=== PATIENT | male | born 1945 | race African-American/Black ===

== ENCOUNTER 2022-09-28 11:21 | Emergency (ER) | payer MEDICARE, OTHER ==
[~2022-09-28] VITALS: Ht 193 cm; Wt 63.6 kg
[2022-09-28 11:53] LABS: Basophils # (auto) 0 10 ^3/uL (0-0.2); Basophils % (auto) 0.6 % (0.0-2.0); Eosinophils # (auto) 0 10 ^3/uL (0-0.8); Eosinophils % (auto) 0.6 % (0.0-7.0); Hematocrit 32.8 % (41.0-53.0); Hemoglobin 10.9 g/dL (13.5-17.5); Lymphocytes # (auto) 1.5 10 ^3/uL (0.4-5.4); Lymphocytes % (auto) 22.5 % (10.0-50.0); Mean Corpuscular Hemoglobin 30.1 pg (28.0-32.0); Mean Corpuscular Hgb Conc. 33.3 g/dL (32.0-36.0); Mean Corpuscular Volume 90.3 fL (80.0-100.0); Monocytes # (auto) 0.4 10 ^3/uL (0-1.3); Monocytes % (auto) 5.7 % (0.0-12.0); Neutrophils # (auto) 4.7 10 ^3/uL (1.6-8.6); Neutrophils % (auto) 70.6 % (37.0-80.0); Nucleated Red Blood Cells % 0.1 %; Red Blood Cells 3.63 10^6/uL (4.5-5.90); Red Cell Distribution Width 16.2 % (11.8-14.3); White Blood Cell 6.7 10^3/uL (4.4-10.8)
[2022-09-28 12:15] LABS: Albumin 2.5 g/dL (3.4-5.0); Calcium 8.2 mg/dL (8.5-10.1); Potassium 3.7 mmol/L (3.5-5.1)
[2022-09-28 12:17] LABS: BUN/Creatinine Ratio 12.9; Bilirubin, Total 0.4 mg/dL (0.2-1.0); Total Protein 6.3 g/dL (6.4-8.2)
[2022-09-28 12:31] LABS: Lactic Acid w/Reflex 2.5 mmol/L (0.4-2.0)
[2022-09-28] MEDS ORDERED: hydrALAZINE HCL 20 MG/ML VL IV ONE (14:15)
[2022-09-28] MEDS ORDERED: ESMOLOL HCL-NS 10MG/ML 250 ML IV SCH (15:00)
[2022-09-28] MEDS ORDERED: ESMOLOL HCL (10MG/ML) 10 ML VIAL IV ONE (15:00)
[2022-09-28 15:18] LABS: INR 1.03 (0.9-1.15); Partial Thromboplastin Time 26.3 sec (24.6-33.4)
[2022-09-28 16:35] VITALS: BP 128/91
== END 2022-09-28 14:21 | disposition short-term general hospital (02) ==
LOC: ER 11:21
DX: I71.8 Aortic aneurysm of unspecified site, ruptured (principal); F17.210 Nicotine dependence, cigarettes, uncomplicated; R07.89 Other chest pain; R10.9 Unspecified abdominal pain; Z20.822 Contact with and (suspected) exposure to COVID-19
CPT/HCPCS: 36415; 36430; 71045; 74176; 80053; 83605; 83735; 83880; 84484; 85025; 85379; 85610; 85730; 86850; 86900; 86901; 86920; 87040; 87426; 93005; 96365; 96375; 96376; 99285; J0360; P9016

== ENCOUNTER 2023-01-07 03:49 | Inpatient (IN) | payer MEDICARE, MEDICAID ==
[~2023-01-07] VITALS: Ht 188 cm; Wt 61.3 kg
[2023-01-07] MEDS ORDERED: SODIUM CHLORIDE 0.9% 500 ML IV ONE (04:00)
[2023-01-07 04:47] LABS: Basophils # (auto) 0 10 ^3/uL (0-0.2); Basophils % (auto) 0.5 % (0.0-2.0); Eosinophils # (auto) 0 10 ^3/uL (0-0.8); Eosinophils % (auto) 0.4 % (0.0-7.0); Hematocrit 41.9 % (41.0-53.0); Lymphocytes # (auto) 1.2 10 ^3/uL (0.4-5.4); Lymphocytes % (auto) 19.4 % (10.0-50.0); Mean Corpuscular Hemoglobin 31.1 pg (28.0-32.0); Mean Corpuscular Hgb Conc. 33.4 g/dL (32.0-36.0); Mean Corpuscular Volume 93.3 fL (80.0-100.0); Monocytes # (auto) 0.3 10 ^3/uL (0-1.3); Monocytes % (auto) 5.6 % (0.0-12.0); Neutrophils # (auto) 4.5 10 ^3/uL (1.6-8.6); Neutrophils % (auto) 74.1 % (37.0-80.0); Nucleated Red Blood Cells % 0.2 %; Red Cell Distribution Width 16.1 % (11.8-14.3)
[2023-01-07 04:49] LABS: INR 1.08 (0.9-1.15); Partial Thromboplastin Time 30.5 sec (24.6-33.4)
[2023-01-07 04:53] LABS: Albumin 3.2 g/dL (3.4-5.0); Calcium 8.9 mg/dL (8.5-10.1); Potassium 3.6 mmol/L (3.5-5.1)
[2023-01-07 04:57] LABS: BUN/Creatinine Ratio 10.6 (10.0-20.0); Bilirubin, Total 0.4 mg/dL (0.2-1.0); Total Protein 8.5 g/dL (6.4-8.2)
[2023-01-07] MEDS ORDERED: ACETAMINOPHEN 325 MG TAB PO PRN (09:00)
[2023-01-07] MEDS ORDERED: ALBUTEROL SULF 2.5 MG/0.5ML(0.5%) NEB SOLN NEB PRN (09:00)
[2023-01-07] MEDS: ALBUTEROL SULF 2.5 MG/0.5ML(0.5%) NEB SOLN NEB SCH ×2 (10:10→18:43)
[2023-01-07] MEDS: IPRATROPIUM BROM 0.5 MG/2.5ML INH SOL NEB SCH ×2 (10:10→18:43)
[2023-01-07 10:21] VITALS: BP 146/93
[2023-01-07] MEDS: ENOXAPARIN SOD 40 MG/0.4 ML SYRINGE SC SCH (10:53)
[2023-01-07] MEDS: SODIUM CHLORIDE 0.9% 1,000 ML IV SCH (10:53)
[2023-01-07 20:50] VITALS: BP 134/75
[2023-01-07 22:00] VITALS: BP 134/75
[2023-01-08] MEDS: SODIUM CHLORIDE 0.9% 1,000 ML IV SCH ×2 (01:40→11:55)
[2023-01-08 05:00] VITALS: BP 124/79
[2023-01-08 06:02] LABS: Basophils # (auto) 0 10 ^3/uL (0-0.2); Basophils % (auto) 0.7 % (0.0-2.0); Eosinophils # (auto) 0.1 10 ^3/uL (0-0.8); Eosinophils % (auto) 1.3 % (0.0-7.0); Hematocrit 29.6 % (41.0-53.0); Hemoglobin 9.9 g/dL (13.5-17.5); Lymphocytes # (auto) 1.4 10 ^3/uL (0.4-5.4); Lymphocytes % (auto) 33.1 % (10.0-50.0); Mean Corpuscular Hemoglobin 30.6 pg (28.0-32.0); Mean Corpuscular Hgb Conc. 33.3 g/dL (32.0-36.0); Mean Corpuscular Volume 91.7 fL (80.0-100.0); Monocytes # (auto) 0.4 10 ^3/uL (0-1.3); Monocytes % (auto) 9.3 % (0.0-12.0); Neutrophils # (auto) 2.3 10 ^3/uL (1.6-8.6); Neutrophils % (auto) 55.6 % (37.0-80.0); Nucleated Red Blood Cells % 0.1 %; Red Blood Cells 3.23 10^6/uL (4.5-5.90); Red Cell Distribution Width 15.9 % (11.8-14.3); White Blood Cell 4.2 10^3/uL (4.4-10.8)
[2023-01-08 06:15] LABS: Albumin 2.4 g/dL (3.4-5.0); Calcium 8.2 mg/dL (8.5-10.1); Potassium 3.4 mmol/L (3.5-5.1)
[2023-01-08 06:20] LABS: BUN/Creatinine Ratio 17.2 (10.0-20.0); Bilirubin, Total 0.2 mg/dL (0.2-1.0); Total Protein 5.9 g/dL (6.4-8.2)
[2023-01-08] MEDS: IPRATROPIUM BROM 0.5 MG/2.5ML INH SOL NEB SCH ×3 (06:51→12:00)
[2023-01-08] MEDS: ALBUTEROL SULF 2.5 MG/0.5ML(0.5%) NEB SOLN NEB SCH ×3 (06:51→12:00)
[2023-01-08 09:00] VITALS: BP 116/71
[2023-01-08] MEDS: ENOXAPARIN SOD 40 MG/0.4 ML SYRINGE SC SCH (09:14)
[2023-01-08 13:00] VITALS: BP 128/71
[2023-01-08] MEDS ORDERED: BUDE1AER4 IN (15:25)
[2023-01-08 16:50] VITALS: BP 128/71
[2023-01-08 17:20] VITALS: BP 142/76
== END 2023-01-08 18:30 | disposition home or self-care (01) | DRG 133 ==
LOC: ER 03:49 → OVERFLOW 09:02 → EAST 20:06
PROVIDERS: ADMIT Nurse Practitioner Family; ATTEND Nurse Practitioner Acute Care
DX: J96.01 Acute respiratory failure with hypoxia (principal); R64 Cachexia; J44.9 Chronic obstructive pulmonary disease, unspecified; F17.200 Nicotine dependence, unspecified, uncomplicated; F41.9 Anxiety disorder, unspecified; Z79.51 Long term (current) use of inhaled steroids; Z86.79 Personal history of other diseases of the circulatory system; Z68.1 Body mass index [BMI] 19.9 or less, adult
CPT/HCPCS: 36415; 71045; 71260; 74177; 80053; 83880; 84484; 85025; 85610; 85730; 93005; 94640; 96360; 96372; 97110; 97116; 97163; G0378

== ENCOUNTER 2023-02-04 23:19 | Inpatient (IN) | payer MEDICARE, MEDICAID ==
[~2023-02-04] VITALS: Ht 195.6 cm; Wt 62.1 kg
[~2023-02-04 23:19] MED LIST: BUDE1AER4 IN
[2023-02-05 00:12] LABS: Basophils # (auto) 0 10 ^3/uL (0-0.2); Basophils % (auto) 0.3 % (0.0-2.0); Eosinophils # (auto) 0 10 ^3/uL (0-0.8); Eosinophils % (auto) 0.2 % (0.0-7.0); Hematocrit 34.6 % (41.0-53.0); Hemoglobin 11.5 g/dL (13.5-17.5); Lymphocytes # (auto) 1.2 10 ^3/uL (0.4-5.4); Lymphocytes % (auto) 21.8 % (10.0-50.0); Mean Corpuscular Hemoglobin 30.7 pg (28.0-32.0); Mean Corpuscular Hgb Conc. 33.3 g/dL (32.0-36.0); Mean Corpuscular Volume 92.3 fL (80.0-100.0); Monocytes # (auto) 0.5 10 ^3/uL (0-1.3); Monocytes % (auto) 8.8 % (0.0-12.0); Neutrophils # (auto) 3.9 10 ^3/uL (1.6-8.6); Neutrophils % (auto) 68.9 % (37.0-80.0); Nucleated Red Blood Cells % 0.1 %; Red Blood Cells 3.74 10^6/uL (4.5-5.90); Red Cell Distribution Width 16.6 % (11.8-14.3); White Blood Cell 5.6 10^3/uL (4.4-10.8)
[2023-02-05 00:20] LABS: INR 1.07 (0.9-1.15); Partial Thromboplastin Time 30.1 SEC (24.5-34.5)
[2023-02-05 00:24] LABS: Albumin 2.7 g/dL (3.4-5.0); BUN/Creatinine Ratio 15.2 (10.0-20.0); Calcium 8.2 mg/dL (8.5-10.1); Potassium 3.2 mmol/L (3.5-5.1)
[2023-02-05 00:56] LABS: Bilirubin, Total 0.5 mg/dL (0.2-1.0); Total Protein 7.2 g/dL (6.4-8.2)
[2023-02-05] MEDS ORDERED: FUROSEMIDE 20 MG/2 ML VIAL IV ONE (03:45)
[2023-02-05 04:16] LABS: Basophils # (auto) 0 10 ^3/uL (0-0.2); Basophils % (auto) 0.4 % (0.0-2.0); Eosinophils # (auto) 0 10 ^3/uL (0-0.8); Eosinophils % (auto) 0.5 % (0.0-7.0); Hematocrit 35.7 % (41.0-53.0); Hemoglobin 11.7 g/dL (13.5-17.5); Lymphocytes # (auto) 1.7 10 ^3/uL (0.4-5.4); Lymphocytes % (auto) 28.9 % (10.0-50.0); Mean Corpuscular Hemoglobin 30.9 pg (28.0-32.0); Mean Corpuscular Hgb Conc. 32.7 g/dL (32.0-36.0); Mean Corpuscular Volume 94.5 fL (80.0-100.0); Monocytes # (auto) 0.6 10 ^3/uL (0-1.3); Monocytes % (auto) 10.2 % (0.0-12.0); Neutrophils # (auto) 3.6 10 ^3/uL (1.6-8.6); Nucleated Red Blood Cells % 0.1 %; Red Blood Cells 3.78 10^6/uL (4.5-5.90)
[2023-02-05 04:55] LABS: Albumin 2.8 g/dL (3.4-5.0); BUN/Creatinine Ratio 17.2 (10.0-20.0); Calcium 8.6 mg/dL (8.5-10.1); Potassium 3.4 mmol/L (3.5-5.1)
[2023-02-05 04:58] LABS: Bilirubin, Total 0.4 mg/dL (0.2-1.0); Total Protein 7.5 g/dL (6.4-8.2)
[2023-02-05 10:19] LABS: Urine Bacteria NONE SEEN /hpf (None Seen); Urine Blood Negative /uL (Negative); Urine Hyaline Cast FEW /lpf (0 - 2); Urine Specific Gravity 1.016 (1.001-1.035); Urine WBC <1 /hpf (0 - 3)
[2023-02-05 10:41] VITALS: BP 126/80
[2023-02-05] MEDS ORDERED: ALBUTEROL SULF 2.5 MG/0.5ML(0.5%) NEB SOLN NEB PRN (10:45)
[2023-02-05] MEDS ORDERED: IPRATROPIUM BROM 0.5 MG/2.5ML INH SOL NEB PRN (10:45)
[2023-02-05] MEDS ORDERED: POTASSIUM EFFERVESENT TAB 25 MEQ PO ONE (10:45)
[2023-02-05] MEDS ORDERED: ASPirin 81 mg TAB PO ONE (16:00)
[2023-02-05] MEDS ORDERED: CLOPIDOGREL BISULFATE 75 MG TAB PO ONE (16:00)
[2023-02-05] MEDS: DOBUTamine 1000MCG/ML 250 ML IV SCH (16:54)
[2023-02-05 17:11] VITALS: BP 150/87
[2023-02-05] MEDS: FUROSEMIDE 20 MG/2 ML VIAL IV SCH (18:45)
[2023-02-05 20:00] VITALS: BP 155/103
[2023-02-05] MEDS: CARVEDILOL 3.125 MG TAB PO SCH (21:51)
[2023-02-05] MEDS: ATORVASTATIN 20 MG TAB PO SCH (21:51)
[2023-02-05] MEDS: BUDESONIDE IN SCH (21:54)
[2023-02-05] MEDS: FORMOTEROL FUMARATE IN SCH (21:54)
[2023-02-05 22:00] VITALS: BP 155/103
[2023-02-06 04:17] LABS: Alcohol, Urine < 3.0 mg/dL (0-10); Amphetamine Screen, Urine NEGATIVE (NEGATIVE); Barbiturate Scree,Urine NEGATIVE (NEGATIVE); Benzodiazephine Screen, Urine NEGATIVE (NEGATIVE); Cannabinoid Screen, Urine NEGATIVE (NEGATIVE); Cocaine Screen, Urine NEGATIVE (NEGATIVE); Opiate Scree,Urine NEGATIVE (NEGATIVE); Phencyclidine Screen, Urine NEGATIVE (NEGATIVE)
[2023-02-06 05:00] VITALS: BP 138/78
[2023-02-06] MEDS: FUROSEMIDE 20 MG/2 ML VIAL IV SCH ×2 (05:50→18:05)
[2023-02-06 06:21] LABS: Albumin 2.5 g/dL (3.4-5.0); Potassium 3.2 mmol/L (3.5-5.1)
[2023-02-06 06:28] LABS: Basophils # (auto) 0 10 ^3/uL (0-0.2); Basophils % (auto) 0.6 % (0.0-2.0); Bilirubin, Total 0.8 mg/dL (0.2-1.0); Calcium 8.6 mg/dL (8.5-10.1); Eosinophils # (auto) 0 10 ^3/uL (0-0.8); Eosinophils % (auto) 0.8 % (0.0-7.0); Hemoglobin 10.6 g/dL (13.5-17.5); Lymphocytes # (auto) 1.7 10 ^3/uL (0.4-5.4); Lymphocytes % (auto) 29.4 % (10.0-50.0); Mean Corpuscular Hemoglobin 31.3 pg (28.0-32.0); Mean Corpuscular Hgb Conc. 34.2 g/dL (32.0-36.0); Mean Corpuscular Volume 91.5 fL (80.0-100.0); Monocytes # (auto) 0.5 10 ^3/uL (0-1.3); Monocytes % (auto) 9.6 % (0.0-12.0); Neutrophils # (auto) 3.4 10 ^3/uL (1.6-8.6); Neutrophils % (auto) 59.6 % (37.0-80.0); Nucleated Red Blood Cells % 0.1 %; Red Blood Cells 3.39 10^6/uL (4.5-5.90); Red Cell Distribution Width 16.3 % (11.8-14.3); Total Protein 6.9 g/dL (6.4-8.2); White Blood Cell 5.6 10^3/uL (4.4-10.8)
[2023-02-06 09:00] VITALS: BP 128/65
[2023-02-06] MEDS ORDERED: POTASSIUM EFFERVESENT TAB 25 MEQ PO ONE (09:30)
[2023-02-06] MEDS ORDERED: METOPROLOL TARTRATE 25 MG TAB PO SCH (10:00)
[2023-02-06] MEDS: FORMOTEROL FUMARATE IN SCH ×2 (10:00→21:55)
[2023-02-06] MEDS: BUDESONIDE IN SCH ×2 (10:00→21:55)
[2023-02-06] MEDS: ASPirin 81 mg TAB PO SCH (10:28)
[2023-02-06] MEDS: CARVEDILOL 3.125 MG TAB PO SCH ×2 (10:28→21:56)
[2023-02-06] MEDS: NICOTINE 14 MG/24HR TOPICAL PATCH TD SCH (10:28)
[2023-02-06] MEDS: CLOPIDOGREL BISULFATE 75 MG TAB PO SCH (10:29)
[2023-02-06] MEDS: PANTOPRAZOLE 40 MG/10 ML VIAL INJ IV SCH (10:29)
[2023-02-06 13:00] VITALS: BP 137/82
[2023-02-06] MEDS: DOBUTamine 1000MCG/ML 250 ML IV SCH (15:29)
[2023-02-06 17:00] VITALS: BP 133/81
[2023-02-06 20:00] VITALS: BP 139/89
[2023-02-06] MEDS: ATORVASTATIN 20 MG TAB PO SCH (21:56)
[2023-02-06 22:00] VITALS: BP 139/89
[2023-02-07] VITALS (7 sets, daily range): BP systolic 128–138; BP diastolic 82–86
[2023-02-07] MEDS: FUROSEMIDE 20 MG/2 ML VIAL IV SCH ×2 (05:06→18:02)
[2023-02-07] MEDS: NICOTINE 14 MG/24HR TOPICAL PATCH TD SCH (09:34)
[2023-02-07] MEDS: PANTOPRAZOLE 40 MG/10 ML VIAL INJ IV SCH (09:34)
[2023-02-07] MEDS: CLOPIDOGREL BISULFATE 75 MG TAB PO SCH (09:35)
[2023-02-07] MEDS: ASPirin 81 mg TAB PO SCH (09:36)
[2023-02-07] MEDS: BUDESONIDE IN SCH ×2 (09:36→22:53)
[2023-02-07] MEDS: CARVEDILOL 3.125 MG TAB PO SCH ×2 (09:36→22:45)
[2023-02-07] MEDS: FORMOTEROL FUMARATE IN SCH ×2 (09:36→22:53)
[2023-02-07] MEDS: ATORVASTATIN 20 MG TAB PO SCH (22:45)
[2023-02-08] MEDS: DOBUTamine 1000MCG/ML 250 ML IV SCH (00:04)
[2023-02-08 05:00] VITALS: BP 133/75
[2023-02-08] MEDS: FUROSEMIDE 20 MG/2 ML VIAL IV SCH (05:28)
[2023-02-08 08:05] VITALS: BP 138/82
[2023-02-08 09:00] VITALS: BP 124/82
[2023-02-08] MEDS: NICOTINE 14 MG/24HR TOPICAL PATCH TD SCH (09:12)
[2023-02-08] MEDS: ASPirin 81 mg TAB PO SCH (09:14)
[2023-02-08] MEDS: CARVEDILOL 3.125 MG TAB PO SCH (09:14)
[2023-02-08] MEDS: PANTOPRAZOLE 40 MG/10 ML VIAL INJ IV SCH (09:14)
[2023-02-08] MEDS: CLOPIDOGREL BISULFATE 75 MG TAB PO SCH (09:14)
[2023-02-08] MEDS: FORMOTEROL FUMARATE IN SCH (09:21)
[2023-02-08] MEDS: BUDESONIDE IN SCH (09:21)
[2023-02-08] MEDS ORDERED: NIC21P TOP (10:15)
[2023-02-08] MEDS ORDERED: ASPI-463 PO (10:15)
[2023-02-08] MEDS ORDERED: ATOR20TA PO (10:15)
[2023-02-08] MEDS ORDERED: CAR3125T PO (10:15)
[2023-02-08] MEDS ORDERED: CLOP75TA28 PO (10:15)
[2023-02-08] MEDS ORDERED: FURO1TAB31 PO (10:15)
[2023-02-08 12:03] VITALS: BP 124/82
[2023-02-08 13:00] VITALS: BP 100/60
== END 2023-02-08 17:00 | disposition home or self-care (01) | DRG 194 ==
LOC: ER 23:19 → TELE 02-05 11:07 → TELE-CENTR 02-05 14:43
PROVIDERS: ADMIT Nurse Practitioner Family; ATTEND Family Medicine
DX: I13.0 Hypertensive heart and chronic kidney disease with heart failure and stage 1 through stage 4 chronic kidney disease, or unspecified chronic kidney disease (principal); J96.01 Acute respiratory failure with hypoxia; N17.9 Acute kidney failure, unspecified; E43 Unspecified severe protein-calorie malnutrition; I50.43 Acute on chronic combined systolic (congestive) and diastolic (congestive) heart failure; I42.0 Dilated cardiomyopathy; J91.8 Pleural effusion in other conditions classified elsewhere; D64.9 Anemia, unspecified; E87.6 Hypokalemia; J98.11 Atelectasis; F17.210 Nicotine dependence, cigarettes, uncomplicated; N18.9 Chronic kidney disease, unspecified; I50.82 Biventricular heart failure; M19.90 Unspecified osteoarthritis, unspecified site; J44.9 Chronic obstructive pulmonary disease, unspecified; R79.89 Other specified abnormal findings of blood chemistry; Z68.1 Body mass index [BMI] 19.9 or less, adult; Z86.79 Personal history of other diseases of the circulatory system; Z83.3 Family history of diabetes mellitus; Z71.6 Tobacco abuse counseling
CPT/HCPCS: 36415; 36600; 71045; 71260; 74177; 80053; 80061; 80307; 81001; 82805; 83036; 83880; 84443; 84484; 85025; 85610; 85730; 93005; 93306; 94640; C9113; G0378

== ENCOUNTER 2023-05-09 15:38 | Inpatient (IN) | payer MEDICARE, MEDICAID ==
[~2023-05-09] VITALS: Ht 193 cm; Wt 59.0 kg
[~2023-05-09 15:38] MED LIST changes: +ASPI-463 PO; +ATOR20TA PO; +CAR3125T PO; +CLOP75TA28 PO; +FURO1TAB31 PO; +NIC21P TOP
[2023-05-09] MEDS ORDERED: IPRATROPIUM BROM 0.5 MG/2.5ML INH SOL NEB ONE (16:00)
[2023-05-09] MEDS ORDERED: ALBUTEROL SULF 2.5 MG/0.5ML(0.5%) NEB SOLN NEB ONE (16:00)
[2023-05-09] MEDS ORDERED: FUROSEMIDE 20 MG/2 ML VIAL IV ONE (16:00)
[2023-05-09 17:10] LABS: Basophils # (auto) 0 10 ^3/uL (0-0.2); Basophils % (auto) 0.7 % (0.0-2.0); Eosinophils # (auto) 0 10 ^3/uL (0-0.8); Eosinophils % (auto) 0.3 % (0.0-7.0); Hemoglobin 10.7 g/dL (13.5-17.5); Lymphocytes # (auto) 0.8 10 ^3/uL (0.4-5.4); Lymphocytes % (auto) 11.6 % (10.0-50.0); Mean Corpuscular Hemoglobin 31.2 pg (28.0-32.0); Mean Corpuscular Hgb Conc. 33.2 g/dL (32.0-36.0); Mean Corpuscular Volume 93.7 fL (80.0-100.0); Monocytes # (auto) 0.5 10 ^3/uL (0-1.3); Monocytes % (auto) 7.5 % (0.0-12.0); Neutrophils # (auto) 5.4 10 ^3/uL (1.6-8.6); Neutrophils % (auto) 79.9 % (37.0-80.0); Nucleated Red Blood Cells % 0.2 %; Red Blood Cells 3.42 10^6/uL (4.5-5.90); Red Cell Distribution Width 18.4 % (11.8-14.3); White Blood Cell 6.8 10^3/uL (4.4-10.8)
[2023-05-09 17:23] LABS: INR 1.09 (0.9-1.15); Partial Thromboplastin Time 27.1 SEC (24.5-34.5); Prothrombin Time 11.4 sec (9.3-11.8)
[2023-05-09 17:27] LABS: Alanine Aminotransferase 17 U/L (7-40); Albumin 3.5 g/dL (3.2-4.8); Alkaline Phosphatase 100 U/L (46-116); Anion Gap 8 (5-15); Aspartate Aminotransferase 29 U/L (13-40); BUN/Creatinine Ratio 15.2 (10.0-20.0); Blood Urea Nitrogen 19 mg/dL (9-23); Calcium 8.5 mg/dL (8.7-10.4); Carbon Dioxide 22 mmol/L (20-30); Chloride 113 mmol/L (98-107); Glucose 107 mg/dL (74-106); Sodium 143 mmol/L (136-145)
[2023-05-09 17:28] LABS: Bilirubin, Total 0.9 mg/dL (0.2-1.0); Total Protein 6.8 g/dL (5.7-8.2)
[2023-05-09 18:58] VITALS: PULSE 88; RESP 18; O2SAT 95
[2023-05-09 20:05] VITALS: PULSE 72; RESP 18; O2SAT 97
[2023-05-09] MEDS ORDERED: NITROGLYCERIN 0.4 MG SL TAB SL PRN (20:45)
[2023-05-09] MEDS ORDERED: HYDROcodone-ACET 5/325MG TAB PO PRN (20:45)
[2023-05-09] MEDS ORDERED: MORPHINE SULFATE INJ 2 MG/ml SYRG IV PRN (20:45)
[2023-05-09] MEDS ORDERED: ONDANSETRON HCL 4 MG/2 ML VIAL IV PRN (20:45)
[2023-05-09] MEDS ORDERED: ACETAMINOPHEN 325 MG TAB PO PRN (20:45)
[2023-05-09] MEDS ORDERED: DOCUSATE SOD 100 MG CAP PO PRN (20:45)
[2023-05-09 20:57] VITALS: BP 146/85; PULSE 99; RESP 20; O2SAT 95
[2023-05-09 20:59] LABS: Urine Bacteria NONE SEEN /hpf (None Seen); Urine Blood Negative /uL (Negative); Urine Clarity Clear (Clear); Urine Color Yellow (Yellow); Urine Mucus FEW (None Seen); Urine Protein, UAD 1+ (Negative); Urine Specific Gravity 1.025 (1.001-1.035); Urine WBC 9 /hpf (0 - 3); Urine pH 5.5 (5.0-8.0)
[2023-05-09] MEDS ORDERED: IOHEXOL 350 MG/ML 100ML IJ ONE (21:01)
[2023-05-09] MEDS ORDERED: ATORVASTATIN 20 MG TAB PO SCH (22:00)
[2023-05-09] MEDS: CARVEDILOL 3.125 MG TAB PO SCH (22:53)
[2023-05-09] MEDS: SODIUM CHLOR 0.9% PF (SALINE LOCK) 10ML VIAL/SYR IV SCH (22:53)
[2023-05-10 00:31] VITALS: PULSE 81; RESP 22; O2SAT 95
[2023-05-10] MEDS: ALBUTEROL SULF 2.5 MG/0.5ML(0.5%) NEB SOLN NEB PRN ×2 (00:31→05:59)
[2023-05-10] MEDS: IPRATROPIUM BROM 0.5 MG/2.5ML INH SOL NEB PRN ×2 (00:31→05:59)
[2023-05-10 00:41] VITALS: PULSE 83; RESP 20; O2SAT 100
[2023-05-10 05:20] VITALS: O2SAT 95
[2023-05-10 05:41] LABS: Basophils # (auto) 0 10 ^3/uL (0-0.2); Basophils % (auto) 0.5 % (0.0-2.0); Eosinophils # (auto) 0.1 10 ^3/uL (0-0.8); Eosinophils % (auto) 1.6 % (0.0-7.0); Hematocrit 29.5 % (41.0-53.0); Hemoglobin 9.8 g/dL (13.5-17.5); Mean Corpuscular Hemoglobin 31.6 pg (28.0-32.0); Mean Corpuscular Hgb Conc. 33.2 g/dL (32.0-36.0); Mean Corpuscular Volume 95.2 fL (80.0-100.0); Monocytes # (auto) 0.5 10 ^3/uL (0-1.3); Monocytes % (auto) 9.4 % (0.0-12.0); Neutrophils # (auto) 3.7 10 ^3/uL (1.6-8.6); Neutrophils % (auto) 69.5 % (37.0-80.0); Nucleated Red Blood Cells % 0.2 %; Red Cell Distribution Width 19.1 % (11.8-14.3); White Blood Cell 5.3 10^3/uL (4.4-10.8)
[2023-05-10 06:08] LABS: Alanine Aminotransferase 12 U/L (7-40); Alkaline Phosphatase 89 U/L (46-116); Anion Gap 8 (5-15); Calcium 8.6 mg/dL (8.7-10.4); Carbon Dioxide 21 mmol/L (20-30); Chloride 113 mmol/L (98-107); Potassium 3.8 mmol/L (3.5-5.1); Sodium 142 mmol/L (136-145)
[2023-05-10 06:09] LABS: Blood Urea Nitrogen 17 mg/dL (9-23); Glucose 101 mg/dL (74-106)
[2023-05-10 06:10] LABS: Albumin 3.4 g/dL (3.2-4.8); Aspartate Aminotransferase 20 U/L (13-40)
[2023-05-10 06:11] LABS: Bilirubin, Total 0.8 mg/dL (0.2-1.0); Total Protein 6.7 g/dL (5.7-8.2)
[2023-05-10] MEDS: SODIUM CHLOR 0.9% PF (SALINE LOCK) 10ML VIAL/SYR IV SCH ×3 (06:17→22:09)
[2023-05-10] MEDS ORDERED: hydrALAZINE HCL 20 MG/ML VL IV PRN (06:30)
[2023-05-10] MEDS ORDERED: FUROSEMIDE 40 MG/4 ML VIAL IV SCH (10:00)
[2023-05-10] MEDS ORDERED: LORazepam 2MG/ML-1ML VIAL IV PRN (10:00)
[2023-05-10] MEDS: CARVEDILOL 3.125 MG TAB PO SCH ×2 (11:18→22:00)
[2023-05-10] MEDS: ASPirin 81 mg TAB PO SCH (11:18)
[2023-05-10] MEDS: CLOPIDOGREL BISULFATE 75 MG TAB PO SCH (11:19)
[2023-05-10] MEDS: MULTIPLE VITAMIN TAB PO SCH (11:19)
[2023-05-10] MEDS: DOBUTamine 1000MCG/ML 250 ML IV SCH (11:22)
[2023-05-10] MEDS ORDERED: methylPREDNISolone SOD SUCC 40 MG/ML VL IV STA (11:29)
[2023-05-10] MEDS ORDERED: AZITHROMYCIN 500MG/ 250ML 250 ML IV STA (11:29)
[2023-05-10] MEDS ORDERED: cefTRIAXone 1GM/50ML D5W 50 ML IV STA (11:29)
[2023-05-10] MEDS ORDERED: ENOXAPARIN SOD 30 MG/0.3 ML SYRINGE SC ONE (11:30)
[2023-05-10] MEDS: ALBUTEROL SULF 2.5 MG/0.5ML(0.5%) NEB SOLN NEB SCH ×3 (11:45→18:50)
[2023-05-10] MEDS ORDERED: LISINOPRIL 5 MG TAB PO ONE (11:45)
[2023-05-10] MEDS: IPRATROPIUM BROM 0.5 MG/2.5ML INH SOL NEB SCH ×3 (11:45→18:50)
[2023-05-10] MEDS: FUROSEMIDE 40 MG/4 ML VIAL IV SCH ×2 (11:45→22:09)
[2023-05-10 15:55] LABS: Urine Bacteria NONE SEEN /hpf (None Seen); Urine Blood Negative /uL (Negative); Urine Clarity Clear (Clear); Urine Protein, UAD Negative (Negative); Urine Urobilinogen Normal (Negative); Urine WBC 1 /hpf (0 - 3)
[2023-05-10 15:56] LABS: Urine Color STRAW (Yellow)
[2023-05-10 17:54] VITALS: PULSE 112; RESP 20; O2SAT 95
[2023-05-10 18:02] VITALS: PULSE 127; RESP 20; O2SAT 100
[2023-05-10 20:17] VITALS: PULSE 85; RESP 14; O2SAT 100
[2023-05-10] MEDS: ATORVASTATIN 20 MG TAB PO SCH (22:00)
[2023-05-10] MEDS: SACUBITRIL-VALSARTAN 24mg/26mg TAB PO SCH (22:00)
[2023-05-10] MEDS ORDERED: LISINOPRIL 5 MG TAB PO SCH (22:00)
[2023-05-10] MEDS: methylPREDNISolone SOD SUCC 40 MG/ML VL IV SCH (22:09)
[2023-05-11] VITALS (15 sets, daily range): BP systolic 103–129; BP diastolic 71–91; PULSE 76–112; RESP 18–20; TEMP 97.5–98.4; O2SAT 88–100
[2023-05-11] MEDS: ALBUTEROL SULF 2.5 MG/0.5ML(0.5%) NEB SOLN NEB SCH ×4 (00:44→18:43)
[2023-05-11] MEDS: IPRATROPIUM BROM 0.5 MG/2.5ML INH SOL NEB SCH ×4 (00:44→18:44)
[2023-05-11 05:36] LABS: Anion Gap 11 (5-15); Carbon Dioxide 22 mmol/L (20-30); Chloride 110 mmol/L (98-107); Potassium 3.6 mmol/L (3.5-5.1); Sodium 143 mmol/L (136-145)
[2023-05-11 05:38] LABS: Basophils # (auto) 0 10 ^3/uL (0-0.2); Basophils % (auto) 0.2 % (0.0-2.0); Calcium 8.6 mg/dL (8.5-10.1); Eosinophils # (auto) 0 10 ^3/uL (0-0.8); Hematocrit 29.9 % (41.0-53.0); Hemoglobin 10.2 g/dL (13.5-17.5); Lymphocytes # (auto) 0.4 10 ^3/uL (0.4-5.4); Lymphocytes % (auto) 6.8 % (10.0-50.0); Mean Corpuscular Hemoglobin 32.4 pg (28.0-32.0); Mean Corpuscular Volume 95.2 fL (80.0-100.0); Monocytes # (auto) 0.1 10 ^3/uL (0-1.3); Monocytes % (auto) 2.3 % (0.0-12.0); Neutrophils # (auto) 4.8 10 ^3/uL (1.6-8.6); Neutrophils % (auto) 90.7 % (37.0-80.0); Nucleated Red Blood Cells % 0.1 %; Red Blood Cells 3.14 10^6/uL (4.5-5.90); Red Cell Distribution Width 18.2 % (11.8-14.3); White Blood Cell 5.3 10^3/uL (4.4-10.8)
[2023-05-11 05:42] LABS: BUN/Creatinine Ratio 15.2 (10.0-20.0); Blood Urea Nitrogen 20 mg/dL (9-23); Glucose 98 mg/dL (74-106)
[2023-05-11] MEDS: SODIUM CHLOR 0.9% PF (SALINE LOCK) 10ML VIAL/SYR IV SCH ×3 (06:21→21:35)
[2023-05-11] MEDS: EMPAGLIFLOZIN 10 MG TAB PO SCH (06:21)
[2023-05-11] MEDS: methylPREDNISolone SOD SUCC 40 MG/ML VL IV SCH ×2 (09:15→21:35)
[2023-05-11] MEDS: FUROSEMIDE 40 MG/4 ML VIAL IV SCH ×2 (09:18→21:35)
[2023-05-11] MEDS: cefTRIAXone 1GM/50ML D5W 50 ML IV SCH (09:25)
[2023-05-11] MEDS: ASPirin 81 mg TAB PO SCH (09:31)
[2023-05-11] MEDS: MULTIPLE VITAMIN TAB PO SCH (09:31)
[2023-05-11] MEDS: CLOPIDOGREL BISULFATE 75 MG TAB PO SCH (09:31)
[2023-05-11] MEDS: ENOXAPARIN SOD 30 MG/0.3 ML SYRINGE SC SCH (09:31)
[2023-05-11] MEDS: CARVEDILOL 3.125 MG TAB PO SCH ×2 (09:32→21:34)
[2023-05-11] MEDS: SACUBITRIL-VALSARTAN 24mg/26mg TAB PO SCH ×2 (09:32→21:34)
[2023-05-11 09:55] LABS: Triglycerides 65 mg/dL (< 150)
[2023-05-11 09:56] LABS: LDL Cholesterol 77 mg/dL (< 100)
[2023-05-11 09:57] LABS: Cholesterol 145 mg/dL (< 200); HDL Cholesterol 49 mg/dL (40-59)
[2023-05-11] MEDS ORDERED: METOPROLOL SUCCINATE XL 50 MG TAB PO SCH (10:00)
[2023-05-11] MEDS: AZITHROMYCIN 500MG/ 250ML 250 ML IV SCH (11:41)
[2023-05-11] MEDS: DOBUTamine 1000MCG/ML 250 ML IV SCH (12:03)
[2023-05-11] MEDS: ATORVASTATIN 20 MG TAB PO SCH (21:34)
[2023-05-12] VITALS (18 sets, daily range): BP systolic 93–135; BP diastolic 68–93; PULSE 60–137; RESP 16–20; TEMP 97.9–98.4; O2SAT 94–100
[2023-05-12] MEDS: ALBUTEROL SULF 2.5 MG/0.5ML(0.5%) NEB SOLN NEB SCH ×5 (00:46→23:53)
[2023-05-12] MEDS: IPRATROPIUM BROM 0.5 MG/2.5ML INH SOL NEB SCH ×5 (00:46→23:53)
[2023-05-12] MEDS: SODIUM CHLOR 0.9% PF (SALINE LOCK) 10ML VIAL/SYR IV SCH ×3 (06:07→21:56)
[2023-05-12] MEDS: EMPAGLIFLOZIN 10 MG TAB PO SCH (06:07)
[2023-05-12 06:18] LABS: Chloride 106 mmol/L (98-107); Potassium 3.8 mmol/L (3.5-5.1)
[2023-05-12 06:19] LABS: Sodium 138 mmol/L (136-145)
[2023-05-12 06:20] LABS: Anion Gap 9 (5-15); Calcium 8.8 mg/dL (8.5-10.1); Carbon Dioxide 23 mmol/L (20-30)
[2023-05-12 06:24] LABS: Glucose 122 mg/dL (74-106)
[2023-05-12 06:25] LABS: BUN/Creatinine Ratio 20.7 (10.0-20.0)
[2023-05-12 06:27] LABS: Basophils # (auto) 0 10 ^3/uL (0-0.2); Basophils % (auto) 0.1 % (0.0-2.0); Eosinophils # (auto) 0 10 ^3/uL (0-0.8); Hematocrit 29.1 % (41.0-53.0); Hemoglobin 9.8 g/dL (13.5-17.5); Lymphocytes # (auto) 0.5 10 ^3/uL (0.4-5.4); Lymphocytes % (auto) 10.3 % (10.0-50.0); Mean Corpuscular Hgb Conc. 33.6 g/dL (32.0-36.0); Mean Corpuscular Volume 95.3 fL (80.0-100.0); Monocytes # (auto) 0.2 10 ^3/uL (0-1.3); Monocytes % (auto) 4.2 % (0.0-12.0); Neutrophils # (auto) 4.3 10 ^3/uL (1.6-8.6); Neutrophils % (auto) 85.4 % (37.0-80.0); Nucleated Red Blood Cells % 0.1 %; Red Blood Cells 3.05 10^6/uL (4.5-5.90); Red Cell Distribution Width 17.8 % (11.8-14.3)
[2023-05-12 06:30] LABS: Blood Urea Nitrogen 34 mg/dL (9-23)
[2023-05-12] MEDS ORDERED: dilTIAZem 25 MG/5 ML VIAL IV ONE (06:45)
[2023-05-12 07:29] LABS: Rapid Influenza A Negative (Negative); Rapid Influenza B Negative (Negative)
[2023-05-12] MEDS: cefTRIAXone 1GM/50ML D5W 50 ML IV SCH (09:36)
[2023-05-12] MEDS ORDERED: METOPROLOL TARTRATE 1MG/1ML-5ML VIAL IV ONE (09:45)
[2023-05-12] MEDS ORDERED: POTASSIUM CHL 20MEQ/100ML 100 ML IV SCH (09:45)
[2023-05-12] MEDS ORDERED: POTASSIUM CHL 20 Meq TABLET PO ONE (10:00)
[2023-05-12] MEDS: LORazepam 0.5 MG TAB PO PRN (10:02)
[2023-05-12] MEDS: ENOXAPARIN SOD 30 MG/0.3 ML SYRINGE SC SCH (10:03)
[2023-05-12] MEDS: methylPREDNISolone SOD SUCC 40 MG/ML VL IV SCH ×2 (10:03→21:55)
[2023-05-12] MEDS: CLOPIDOGREL BISULFATE 75 MG TAB PO SCH (10:03)
[2023-05-12] MEDS: MULTIPLE VITAMIN TAB PO SCH (10:04)
[2023-05-12] MEDS: CARVEDILOL 3.125 MG TAB PO SCH ×2 (10:05→21:55)
[2023-05-12] MEDS: FUROSEMIDE 40 MG/4 ML VIAL IV SCH ×2 (10:05→21:56)
[2023-05-12] MEDS: ASPirin 81 mg TAB PO SCH (10:05)
[2023-05-12] MEDS: SACUBITRIL-VALSARTAN 24mg/26mg TAB PO SCH ×2 (10:05→21:54)
[2023-05-12] MEDS: AZITHROMYCIN 500MG/ 250ML 250 ML IV SCH (10:25)
[2023-05-12 10:41] LABS: COVID19 ANTIGEN SOFIA FIA NEGATIVE (NEGATIVE)
[2023-05-12] MEDS ORDERED: LORazepam 2MG/ML-1ML VIAL IV PRN (16:00)
[2023-05-12] MEDS: ATORVASTATIN 20 MG TAB PO SCH (21:54)
[2023-05-13] VITALS (15 sets, daily range): BP systolic 128–134; BP diastolic 70–84; PULSE 65–99; RESP 16–20; TEMP 97.4–98.3; O2SAT 92–100
[2023-05-13 05:22] LABS: Basophils # (auto) 0 10 ^3/uL (0-0.2); Basophils % (auto) 0.1 % (0.0-2.0); Eosinophils # (auto) 0 10 ^3/uL (0-0.8); Hematocrit 31.9 % (41.0-53.0); Hemoglobin 10.7 g/dL (13.5-17.5); Lymphocytes # (auto) 0.4 10 ^3/uL (0.4-5.4); Lymphocytes % (auto) 8.6 % (10.0-50.0); Mean Corpuscular Hemoglobin 31.2 pg (28.0-32.0); Mean Corpuscular Hgb Conc. 33.5 g/dL (32.0-36.0); Mean Corpuscular Volume 92.9 fL (80.0-100.0); Monocytes # (auto) 0.2 10 ^3/uL (0-1.3); Monocytes % (auto) 5.1 % (0.0-12.0); Neutrophils # (auto) 3.8 10 ^3/uL (1.6-8.6); Neutrophils % (auto) 86.2 % (37.0-80.0); Nucleated Red Blood Cells % 0.2 %; Red Blood Cells 3.44 10^6/uL (4.5-5.90); Red Cell Distribution Width 17.5 % (11.8-14.3); White Blood Cell 4.4 10^3/uL (4.4-10.8)
[2023-05-13 05:32] LABS: Anion Gap 8 (5-15); Carbon Dioxide 26 mmol/L (20-30); Chloride 103 mmol/L (98-107); Potassium 4.4 mmol/L (3.5-5.1); Sodium 137 mmol/L (136-145)
[2023-05-13 05:33] LABS: Calcium 8.8 mg/dL (8.7-10.4)
[2023-05-13 05:38] LABS: BUN/Creatinine Ratio 29.3 (10.0-20.0); Glucose 136 mg/dL (74-106)
[2023-05-13 05:48] LABS: Blood Urea Nitrogen 51 mg/dL (9-23)
[2023-05-13] MEDS: EMPAGLIFLOZIN 10 MG TAB PO SCH (05:50)
[2023-05-13] MEDS: SODIUM CHLOR 0.9% PF (SALINE LOCK) 10ML VIAL/SYR IV SCH ×3 (05:51→21:17)
[2023-05-13] MEDS: ALBUTEROL SULF 2.5 MG/0.5ML(0.5%) NEB SOLN NEB SCH ×4 (06:24→22:33)
[2023-05-13] MEDS: IPRATROPIUM BROM 0.5 MG/2.5ML INH SOL NEB SCH ×4 (06:24→22:33)
[2023-05-13] MEDS: Ensure HIGH Protein Chocolate 8oz Bottle PO SCH ×3 (07:30→18:26)
[2023-05-13] MEDS ORDERED: SPIR25TA8 PO (09:34)
[2023-05-13] MEDS ORDERED: EMPA1TAB PO (09:34)
[2023-05-13] MEDS ORDERED: AMOX500T86 PO (09:34)
[2023-05-13] MEDS ORDERED: SACU1TAB PO (09:34)
[2023-05-13] MEDS: cefTRIAXone 1GM/50ML D5W 50 ML IV SCH (11:14)
[2023-05-13] MEDS: SACUBITRIL-VALSARTAN 24mg/26mg TAB PO SCH ×2 (11:18→21:19)
[2023-05-13] MEDS: methylPREDNISolone SOD SUCC 40 MG/ML VL IV SCH ×2 (11:18→21:18)
[2023-05-13] MEDS: FUROSEMIDE 40 MG/4 ML VIAL IV SCH ×2 (11:18→21:17)
[2023-05-13] MEDS: ASPirin 81 mg TAB PO SCH (11:19)
[2023-05-13] MEDS: CLOPIDOGREL BISULFATE 75 MG TAB PO SCH (11:19)
[2023-05-13] MEDS: CARVEDILOL 3.125 MG TAB PO SCH ×2 (11:19→21:19)
[2023-05-13] MEDS: ENOXAPARIN SOD 30 MG/0.3 ML SYRINGE SC SCH (11:19)
[2023-05-13] MEDS: MULTIPLE VITAMIN TAB PO SCH (11:19)
[2023-05-13] MEDS: LORazepam 0.5 MG TAB PO PRN (11:38)
[2023-05-13] MEDS: AZITHROMYCIN 500MG/ 250ML 250 ML IV SCH (11:40)
[2023-05-13] MEDS: ATORVASTATIN 20 MG TAB PO SCH (21:19)
[2023-05-14] VITALS (9 sets, daily range): BP systolic 99–118; BP diastolic 65–76; PULSE 64–131; RESP 16–20; TEMP 97.5–98.4; O2SAT 96–100
[2023-05-14] MEDS: ALBUTEROL SULF 2.5 MG/0.5ML(0.5%) NEB SOLN NEB SCH ×4 (06:22→23:24)
[2023-05-14] MEDS: IPRATROPIUM BROM 0.5 MG/2.5ML INH SOL NEB SCH ×4 (06:22→23:24)
[2023-05-14] MEDS: EMPAGLIFLOZIN 10 MG TAB PO SCH (07:00)
[2023-05-14] MEDS: Ensure HIGH Protein Chocolate 8oz Bottle PO SCH ×2 (08:00→12:00)
[2023-05-14] MEDS: cefTRIAXone 1GM/50ML D5W 50 ML IV SCH (09:00)
[2023-05-14] MEDS: FUROSEMIDE 40 MG/4 ML VIAL IV SCH ×2 (10:00→21:39)
[2023-05-14] MEDS: ASPirin 81 mg TAB PO SCH (10:00)
[2023-05-14] MEDS: SACUBITRIL-VALSARTAN 24mg/26mg TAB PO SCH ×2 (10:00→21:32)
[2023-05-14] MEDS: CARVEDILOL 3.125 MG TAB PO SCH ×2 (10:00→21:33)
[2023-05-14] MEDS: AZITHROMYCIN 500MG/ 250ML 250 ML IV SCH (10:00)
[2023-05-14] MEDS: MULTIPLE VITAMIN TAB PO SCH (10:00)
[2023-05-14] MEDS: ENOXAPARIN SOD 30 MG/0.3 ML SYRINGE SC SCH (10:00)
[2023-05-14] MEDS: CLOPIDOGREL BISULFATE 75 MG TAB PO SCH (10:00)
[2023-05-14] MEDS: methylPREDNISolone SOD SUCC 40 MG/ML VL IV SCH ×2 (10:00→21:32)
[2023-05-14] MEDS: SODIUM CHLOR 0.9% PF (SALINE LOCK) 10ML VIAL/SYR IV SCH ×2 (14:00→21:38)
[2023-05-14] MEDS: ATORVASTATIN 20 MG TAB PO SCH (21:32)
[2023-05-15] VITALS (17 sets, daily range): BP systolic 93–118; BP diastolic 58–69; PULSE 56–89; RESP 14–18; TEMP 97–98.7; O2SAT 93–100
[2023-05-15] MEDS: IPRATROPIUM BROM 0.5 MG/2.5ML INH SOL NEB SCH ×4 (06:11→23:47)
[2023-05-15] MEDS: ALBUTEROL SULF 2.5 MG/0.5ML(0.5%) NEB SOLN NEB SCH ×4 (06:11→23:47)
[2023-05-15] MEDS: SODIUM CHLOR 0.9% PF (SALINE LOCK) 10ML VIAL/SYR IV SCH ×3 (06:14→22:22)
[2023-05-15 06:48] LABS: Anion Gap 8 (5-15); Carbon Dioxide 26 mmol/L (20-30); Chloride 104 mmol/L (98-107); Sodium 138 mmol/L (136-145)
[2023-05-15 06:49] LABS: Basophils # (auto) 0 10 ^3/uL (0-0.2); Basophils % (auto) 0.1 % (0.0-2.0); Calcium 8.8 mg/dL (8.5-10.1); Eosinophils # (auto) 0 10 ^3/uL (0-0.8); Hematocrit 33.3 % (41.0-53.0); Hemoglobin 11.4 g/dL (13.5-17.5); Lymphocytes # (auto) 0.5 10 ^3/uL (0.4-5.4); Mean Corpuscular Hemoglobin 31.7 pg (28.0-32.0); Mean Corpuscular Hgb Conc. 34.1 g/dL (32.0-36.0); Mean Corpuscular Volume 92.8 fL (80.0-100.0); Monocytes # (auto) 0.3 10 ^3/uL (0-1.3); Monocytes % (auto) 4.7 % (0.0-12.0); Neutrophils # (auto) 4.9 10 ^3/uL (1.6-8.6); Neutrophils % (auto) 86.2 % (37.0-80.0); Red Blood Cells 3.59 10^6/uL (4.5-5.90); Red Cell Distribution Width 17.8 % (11.8-14.3); White Blood Cell 5.7 10^3/uL (4.4-10.8)
[2023-05-15 06:54] LABS: BUN/Creatinine Ratio 38.1 (10.0-20.0); Blood Urea Nitrogen 59 mg/dL (9-23); Glucose 148 mg/dL (74-106)
[2023-05-15] MEDS: EMPAGLIFLOZIN 10 MG TAB PO SCH (07:00)
[2023-05-15] MEDS: Ensure HIGH Protein Chocolate 8oz Bottle PO SCH ×3 (08:00→18:14)
[2023-05-15] MEDS: cefTRIAXone 1GM/50ML D5W 50 ML IV SCH (09:32)
[2023-05-15] MEDS: MULTIPLE VITAMIN TAB PO SCH (09:33)
[2023-05-15] MEDS: ENOXAPARIN SOD 30 MG/0.3 ML SYRINGE SC SCH (09:35)
[2023-05-15] MEDS: methylPREDNISolone SOD SUCC 40 MG/ML VL IV SCH ×2 (09:35→22:16)
[2023-05-15] MEDS: ASPirin 81 mg TAB PO SCH (09:35)
[2023-05-15] MEDS: CARVEDILOL 3.125 MG TAB PO SCH ×2 (09:37→22:17)
[2023-05-15] MEDS: SACUBITRIL-VALSARTAN 24mg/26mg TAB PO SCH ×2 (09:37→22:15)
[2023-05-15] MEDS: CLOPIDOGREL BISULFATE 75 MG TAB PO SCH (09:37)
[2023-05-15] MEDS: FUROSEMIDE 40 MG/4 ML VIAL IV SCH ×2 (09:38→22:17)
[2023-05-15] MEDS: AZITHROMYCIN 500MG/ 250ML 250 ML IV SCH (11:03)
[2023-05-15 19:05] LABS: COVID19 ANTIGEN SOFIA FIA NEGATIVE (NEGATIVE)
[2023-05-15] MEDS: ATORVASTATIN 20 MG TAB PO SCH (22:16)
[2023-05-16] VITALS (13 sets, daily range): BP systolic 110–118; BP diastolic 61–76; PULSE 60–76; RESP 12–20; TEMP 97.4–98.2; O2SAT 94–100
[2023-05-16 06:17] LABS: Basophils # (auto) 0 10 ^3/uL (0-0.2); Basophils % (auto) 0.1 % (0.0-2.0); Eosinophils # (auto) 0 10 ^3/uL (0-0.8); Hemoglobin 11.7 g/dL (13.5-17.5); Lymphocytes # (auto) 0.4 10 ^3/uL (0.4-5.4); Lymphocytes % (auto) 7.5 % (10.0-50.0); Mean Corpuscular Hgb Conc. 32.5 g/dL (32.0-36.0); Mean Corpuscular Volume 95.2 fL (80.0-100.0); Monocytes # (auto) 0.2 10 ^3/uL (0-1.3); Monocytes % (auto) 3.1 % (0.0-12.0); Neutrophils # (auto) 5.2 10 ^3/uL (1.6-8.6); Neutrophils % (auto) 89.3 % (37.0-80.0); Red Blood Cells 3.78 10^6/uL (4.5-5.90); Red Cell Distribution Width 17.9 % (11.8-14.3); White Blood Cell 5.8 10^3/uL (4.4-10.8)
[2023-05-16] MEDS: SODIUM CHLOR 0.9% PF (SALINE LOCK) 10ML VIAL/SYR IV SCH ×3 (06:25→21:29)
[2023-05-16] MEDS: ALBUTEROL SULF 2.5 MG/0.5ML(0.5%) NEB SOLN NEB SCH ×3 (06:26→19:09)
[2023-05-16] MEDS: IPRATROPIUM BROM 0.5 MG/2.5ML INH SOL NEB SCH ×3 (06:26→19:09)
[2023-05-16 06:33] LABS: Chloride 103 mmol/L (98-107); Potassium 4.1 mmol/L (3.5-5.1); Sodium 136 mmol/L (136-145)
[2023-05-16 06:34] LABS: Anion Gap 8 (5-15); Calcium 8.7 mg/dL (8.7-10.4); Carbon Dioxide 25 mmol/L (20-30)
[2023-05-16] MEDS: EMPAGLIFLOZIN 10 MG TAB PO SCH (06:38)
[2023-05-16 06:39] LABS: BUN/Creatinine Ratio 44.4 (10.0-20.0); Blood Urea Nitrogen 59 mg/dL (9-23); Glucose 128 mg/dL (74-106)
[2023-05-16] MEDS: Ensure HIGH Protein Chocolate 8oz Bottle PO SCH ×3 (08:00→18:38)
[2023-05-16] MEDS: SACUBITRIL-VALSARTAN 24mg/26mg TAB PO SCH ×2 (10:00→21:25)
[2023-05-16] MEDS: FUROSEMIDE 40 MG/4 ML VIAL IV SCH (12:08)
[2023-05-16] MEDS: MULTIPLE VITAMIN TAB PO SCH (12:17)
[2023-05-16] MEDS: ASPirin 81 mg TAB PO SCH (12:17)
[2023-05-16] MEDS: CLOPIDOGREL BISULFATE 75 MG TAB PO SCH (12:18)
[2023-05-16] MEDS: CARVEDILOL 3.125 MG TAB PO SCH ×2 (12:18→21:25)
[2023-05-16] MEDS: ENOXAPARIN SOD 30 MG/0.3 ML SYRINGE SC SCH (12:19)
[2023-05-16] MEDS ORDERED: HYDROCORTISONE SOD SUCC 100 MG/2ML INJ VIAL IV PRN (12:30)
[2023-05-16] MEDS: ATORVASTATIN 20 MG TAB PO SCH (21:25)
[2023-05-17] VITALS (9 sets, daily range): BP systolic 100–111; BP diastolic 65–92; PULSE 59–66; RESP 16–20; TEMP 97.7–98.1; O2SAT 93–100
[2023-05-17] MEDS: IPRATROPIUM BROM 0.5 MG/2.5ML INH SOL NEB SCH ×2 (00:07→07:15)
[2023-05-17] MEDS: ALBUTEROL SULF 2.5 MG/0.5ML(0.5%) NEB SOLN NEB SCH ×2 (00:07→07:15)
[2023-05-17] MEDS: SODIUM CHLOR 0.9% PF (SALINE LOCK) 10ML VIAL/SYR IV SCH (06:02)
[2023-05-17] MEDS: EMPAGLIFLOZIN 10 MG TAB PO SCH (06:33)
[2023-05-17] MEDS: Ensure HIGH Protein Chocolate 8oz Bottle PO SCH (08:02)
[2023-05-17] MEDS ORDERED: FUROSEMIDE 20 MG TAB PO SCH (10:00)
[2023-05-17] MEDS: SACUBITRIL-VALSARTAN 24mg/26mg TAB PO SCH (10:00)
[2023-05-17] MEDS ORDERED: predniSONE 20 MG TAB PO SCH (10:00)
[2023-05-17] MEDS: ASPirin 81 mg TAB PO SCH (10:06)
[2023-05-17] MEDS: CLOPIDOGREL BISULFATE 75 MG TAB PO SCH (10:06)
[2023-05-17] MEDS: CARVEDILOL 3.125 MG TAB PO SCH (10:07)
[2023-05-17] MEDS: ENOXAPARIN SOD 30 MG/0.3 ML SYRINGE SC SCH (10:08)
[2023-05-17] MEDS: MULTIPLE VITAMIN TAB PO SCH (10:08)
== END 2023-05-17 12:05 | DRG 194 ==
LOC: ER 15:38 → TELE 20:53 → TELE-WESTW 05-10 23:13
PROVIDERS: ADMIT Internal Medicine Pulmonary Disease; ATTEND Student in an Organized Health Care Education/Training Program
DX: I11.0 Hypertensive heart disease with heart failure (principal); J96.01 Acute respiratory failure with hypoxia; I21.A1 Myocardial infarction type 2; E43 Unspecified severe protein-calorie malnutrition; I42.0 Dilated cardiomyopathy; I50.33 Acute on chronic diastolic (congestive) heart failure; Z20.822 Contact with and (suspected) exposure to COVID-19; M19.90 Unspecified osteoarthritis, unspecified site; I49.1 Atrial premature depolarization; J44.1 Chronic obstructive pulmonary disease with (acute) exacerbation; I50.82 Biventricular heart failure; I44.7 Left bundle-branch block, unspecified; F17.200 Nicotine dependence, unspecified, uncomplicated; Z68.1 Body mass index [BMI] 19.9 or less, adult; Z83.3 Family history of diabetes mellitus; Z86.79 Personal history of other diseases of the circulatory system; Z91.199 Patient's noncompliance with other medical treatment and regimen due to unspecified reason
CPT/HCPCS: 36415; 71045; 71275; 76604; 80048; 80053; 80061; 81001; 83036; 83735; 83880; 84443; 84484; 85025; 85379; 85610; 85730; 87426; 87804; 93005; 94640; 96374; 97110; 97116; 97163; 97530; 99291; G0378; J0696

== ENCOUNTER 2023-09-09 14:37 | Inpatient (IN) | payer MEDICARE, MEDICAID ==
[2023-09-09] VITALS (7 sets, daily range): BP systolic 151; BP diastolic 104; PULSE 60–138; RESP 12–22; TEMP 98.2; O2SAT 96–100
[~2023-09-09] VITALS: Ht 195.6 cm; Wt 63.2 kg
[~2023-09-09 14:37] MED LIST changes: +AMOX500T86 PO; +EMPA1TAB PO; +SACU1TAB PO; +SPIR25TA8 PO
[2023-09-09] MEDS: ALBUTEROL SULF 2.5 MG/0.5ML(0.5%) NEB SOLN NEB ONE (15:09)
[2023-09-09 15:29] LABS: Basophils # (auto) 0 10 ^3/uL (0-0.2); Basophils % (auto) 0.4 % (0.0-2.0); Eosinophils # (auto) 0 10 ^3/uL (0-0.8); Eosinophils % (auto) 0.1 % (0.0-7.0); Hematocrit 38.5 % (41.0-53.0); Hemoglobin 12.5 g/dL (13.5-17.5); Lymphocytes # (auto) 0.5 10 ^3/uL (0.4-5.4); Mean Corpuscular Hemoglobin 29.6 pg (28.0-32.0); Mean Corpuscular Hgb Conc. 32.5 g/dL (32.0-36.0); Mean Corpuscular Volume 91.2 fL (80.0-100.0); Monocytes # (auto) 0.5 10 ^3/uL (0-1.3); Monocytes % (auto) 5.5 % (0.0-12.0); Neutrophils # (auto) 7.5 10 ^3/uL (1.6-8.6); Nucleated Red Blood Cells % 0.1 %; Red Blood Cells 4.22 10^6/uL (4.5-5.90); Red Cell Distribution Width 17.6 % (11.8-14.3); White Blood Cell 8.5 10^3/uL (4.4-10.8)
[2023-09-09] MEDS: methylPREDNISolone SOD SUCC 125 MG/2 ML VL IV ONE (15:36)
[2023-09-09] MEDS: MAGNESIUM SULFATE 1GM/100ML 100 ML IV ONE (15:36)
[2023-09-09 15:42] LABS: Alanine Aminotransferase 24 U/L (7-40); Alkaline Phosphatase 111 U/L (46-116); Anion Gap 10 (5-15); Aspartate Aminotransferase 38 U/L (13-40); BUN/Creatinine Ratio 14.3 (10.0-20.0); Bilirubin, Total 0.7 mg/dL (0.2-1.0); Blood Urea Nitrogen 21 mg/dL (9-23); Calcium 8.9 mg/dL (8.5-10.1); Carbon Dioxide 22 mmol/L (20-30); Chloride 111 mmol/L (98-107); Glucose 110 mg/dL (74-106); Sodium 143 mmol/L (136-145); Total Protein 7.1 g/dL (5.7-8.2)
[2023-09-09] MEDS: FUROSEMIDE 40 MG/4 ML VIAL IV SCH (18:00)
[2023-09-09 18:06] LABS: INR 1.08 (0.9-1.15); Partial Thromboplastin Time 29.1 SEC (24.5-34.5); Prothrombin Time 11.3 sec (9.3-11.8)
[2023-09-09] MEDS: PANTOPRAZOLE 40 MG/10 ML VIAL INJ IV SCH (18:23)
[2023-09-09] MEDS: ALBUTEROL SULF 2.5 MG/0.5ML(0.5%) NEB SOLN ONE (18:40)
[2023-09-09] MEDS: IPRATROPIUM BROM 0.5 MG/2.5ML INH SOL ONE (18:40)
[2023-09-09] MEDS: IPRATROPIUM BROM 0.5 MG/2.5ML INH SOL NEB SCH (18:45)
[2023-09-09] MEDS: ALBUTEROL SULF 2.5 MG/0.5ML(0.5%) NEB SOLN NEB SCH (18:45)
[2023-09-09] MEDS: AMIODARONE BOLUS KIT 100 ML IV ONE (20:15)
[2023-09-09] MEDS: AMIODARONE HCL (50 MG/ ML) 3 ML VIAL IV ONE (20:24)
[2023-09-09 20:36] LABS: Base Excess -3.7 mmol/L (-2.0-2.0)
[2023-09-09] MEDS: AMIODARONE 450mg/250ml AE 250 ML IV SCH (20:43)
[2023-09-09 20:55] LABS: Potassium 3.9 mmol/L (3.5-5.1)
[2023-09-09] MEDS: cefTRIAXone 1GM/50ML D5W 50 ML IV ONE (20:55)
[2023-09-09 21:03] LABS: Phosphorus 4.5 mg/dL (2.4-5.1)
[2023-09-09 21:18] LABS: Magnesium 2.3 mg/dL (1.6-2.6)
[2023-09-09] MEDS: methylPREDNISolone SOD SUCC 125 MG/2 ML VL IV SCH (21:34)
[2023-09-09] MEDS: DOXYCYCLINE 100MG/250ML 250 ML IV SCH (21:35)
[2023-09-09] MEDS: LEVALBUTEROL HCL 1.25 MG/3 ML NEB NEB SCH (21:47)
[2023-09-09] MEDS: SACUBITRIL-VALSARTAN 24mg/26mg TAB PO SCH (22:27)
[2023-09-09] MEDS: CARVEDILOL 3.125 MG TAB PO SCH (22:27)
[2023-09-10] VITALS (18 sets, daily range): BP systolic 112–119; BP diastolic 68–73; PULSE 65–98; RESP 16–22; TEMP 97.5–97.9; O2SAT 9–100
[2023-09-10] MEDS: AMIODARONE 450mg/250ml AE 250 ML IV SCH (02:17)
[2023-09-10 03:38] LABS: Urine Bacteria NONE SEEN /hpf (None Seen); Urine Blood Negative /uL (Negative); Urine Clarity Clear (Clear); Urine Color Colorless (Yellow); Urine Hyaline Cast FEW /lpf (0 - 2); Urine Protein, UAD Negative (Negative); Urine Specific Gravity 1.009 (1.001-1.035); Urine Urobilinogen Normal (Negative); Urine WBC <1 /hpf (0 - 3)
[2023-09-10 05:04] LABS: Basophils # (auto) 0 10 ^3/uL (0-0.2); Basophils % (auto) 0.1 % (0.0-2.0); Eosinophils # (auto) 0 10 ^3/uL (0-0.8); Hematocrit 32.3 % (41.0-53.0); Hemoglobin 10.6 g/dL (13.5-17.5); Lymphocytes # (auto) 0.4 10 ^3/uL (0.4-5.4); Lymphocytes % (auto) 10.2 % (10.0-50.0); Mean Corpuscular Hemoglobin 29.7 pg (28.0-32.0); Mean Corpuscular Hgb Conc. 32.9 g/dL (32.0-36.0); Mean Corpuscular Volume 90.2 fL (80.0-100.0); Monocytes # (auto) 0.1 10 ^3/uL (0-1.3); Monocytes % (auto) 2.3 % (0.0-12.0); Neutrophils # (auto) 3.3 10 ^3/uL (1.6-8.6); Neutrophils % (auto) 87.4 % (37.0-80.0); Red Blood Cells 3.58 10^6/uL (4.5-5.90); Red Cell Distribution Width 16.8 % (11.8-14.3); White Blood Cell 3.8 10^3/uL (4.4-10.8)
[2023-09-10 05:22] LABS: Alanine Aminotransferase 15 U/L (7-40); Albumin 3.6 g/dL (3.2-4.8); Alkaline Phosphatase 92 U/L (46-116); Anion Gap 11 (5-15); Aspartate Aminotransferase 22 U/L (13-40); BUN/Creatinine Ratio 15.9 (10.0-20.0); Bilirubin, Total 0.6 mg/dL (0.2-1.0); Blood Urea Nitrogen 24 mg/dL (9-23); Calcium 8.5 mg/dL (8.7-10.4); Carbon Dioxide 19 mmol/L (20-30); Chloride 109 mmol/L (98-107); Glucose 187 mg/dL (74-106); Potassium 3.8 mmol/L (3.5-5.1); Sodium 139 mmol/L (136-145); Total Protein 6.7 g/dL (5.7-8.2)
[2023-09-10 07:21] LABS: Anisocytosis Slight; Giant Platelets Few; Large Platelets FEW; Platelet Estimate Adequate
[2023-09-10] MEDS: EMPAGLIFLOZIN 10 MG TAB PO SCH (09:23)
[2023-09-10] MEDS: cefTRIAXone 1GM/50ML D5W 50 ML IV SCH (09:23)
[2023-09-10] MEDS ORDERED: levoFLOXacin 500MG 100 ML IV SCH ×2 (10:00)
[2023-09-10] MEDS: ASPirin-EC 81 mg tab PO SCH (10:16)
[2023-09-10] MEDS: SPIRONOLACTONE 25 MG TAB PO SCH (10:17)
[2023-09-10] MEDS: CLOPIDOGREL BISULFATE 75 MG TAB PO SCH (10:17)
[2023-09-10] MEDS: NICOTINE 21MG/24 HR TOPICAL PATCH TD SCH (10:18)
[2023-09-10] MEDS: FUROSEMIDE INJECTION 100 MG in D5W 5% 100 ML IV SCH (19:06)
[2023-09-10] MEDS: ATORVASTATIN 20 MG TAB PO SCH (21:52)
[2023-09-11] VITALS (21 sets, daily range): BP systolic 118–128; BP diastolic 67–78; PULSE 59–91; RESP 17–21; TEMP 97.4–98.5; O2SAT 94–100
[2023-09-11 10:15] LABS: Alanine Aminotransferase 12 U/L (7-40); Albumin 3.6 g/dL (3.2-4.8); Alkaline Phosphatase 88 U/L (46-116); Anion Gap 8 (5-15); Aspartate Aminotransferase 19 U/L (13-40); BUN/Creatinine Ratio 18.8 (10.0-20.0); Calcium 8.6 mg/dL (8.5-10.1); Carbon Dioxide 21 mmol/L (20-30); Chloride 109 mmol/L (98-107); Glucose 175 mg/dL (74-106); Potassium 3.5 mmol/L (3.5-5.1); Sodium 138 mmol/L (136-145)
[2023-09-11 10:16] LABS: Bilirubin, Total 0.5 mg/dL (0.2-1.0); Total Protein 6.4 g/dL (5.7-8.2)
[2023-09-11 10:19] LABS: Blood Urea Nitrogen 36 mg/dL (9-23)
[2023-09-11 10:56] LABS: Free T3 1.36 pg/mL (2.3-4.2); Free T4 (Free Thyroxine) 1.28 ng/dL (0.89-1.76)
[2023-09-12] VITALS (19 sets, daily range): BP systolic 102–150; BP diastolic 54–82; PULSE 49–99; RESP 16–22; TEMP 97.7–99.6; O2SAT 97–100
[2023-09-12 16:49] LABS: Urine Bacteria NONE SEEN /hpf (None Seen); Urine Blood Negative /uL (Negative); Urine Budding Yeast MODERATE /hpf (None Seen); Urine Clarity Clear (Clear); Urine Color Colorless (Yellow); Urine Hyaline Cast FEW /lpf (0 - 2); Urine Protein, UAD Negative (Negative); Urine Specific Gravity 1.012 (1.001-1.035); Urine Urobilinogen Normal (Negative); Urine WBC 10 /hpf (0 - 3)
[2023-09-12 16:59] LABS: Protein, Urine 11.6 mg/dL (0.0-11.9)
[2023-09-12 17:01] LABS: Creatinine, Urine 40.57 mg/dL (30.0-125.0)
[2023-09-13] VITALS (20 sets, daily range): BP systolic 98–130; BP diastolic 56–73; PULSE 70–92; RESP 12–22; TEMP 97.3–97.9; O2SAT 95–100
[2023-09-13 06:49] LABS: Hematocrit 35.4 % (41.0-53.0); Hemoglobin 11.8 g/dL (13.5-17.5); Mean Corpuscular Hemoglobin 29.5 pg (28.0-32.0); Mean Corpuscular Hgb Conc. 33.3 g/dL (32.0-36.0); Mean Corpuscular Volume 88.6 fL (80.0-100.0); Red Blood Cells 3.99 10^6/uL (4.5-5.90); Red Cell Distribution Width 17.1 % (11.8-14.3); White Blood Cell 7.3 10^3/uL (4.4-10.8)
[2023-09-13 06:56] LABS: Anion Gap 8 (5-15); Carbon Dioxide 25 mmol/L (20-30); Chloride 103 mmol/L (98-107); Potassium 3.8 mmol/L (3.5-5.1); Sodium 136 mmol/L (136-145)
[2023-09-13 06:57] LABS: Calcium 8.6 mg/dL (8.7-10.4)
[2023-09-13 07:01] LABS: Glucose 132 mg/dL (74-106); Uric Acid 7.9 mg/dL (3.7-9.2)
[2023-09-13 07:02] LABS: BUN/Creatinine Ratio 29.6 (10.0-20.0)
[2023-09-13 07:04] LABS: Phosphorus 3.4 mg/dL (2.4-5.1)
[2023-09-13 07:06] LABS: Blood Urea Nitrogen 56 mg/dL (9-23)
[2023-09-13 07:21] LABS: Basophils % (manual) 0 (0.0-2.0); Blast Cells 0; Eosinophils % (manual) 0 (0-7); Metamyelocytes % 0; Myelocytes % 0; Promyelocytes % 0; Reactive Lymphocytes 0
[2023-09-13 08:34] LABS: Anisocytosis Slight; Band Neutrophils % (manual) 1; Lymphocytes % (manual) 3 (10.0-50.0); Monocytes % (manual) 6 (0-12); Platelet Estimate Adequate
[2023-09-13] MEDS: MUPIROCIN 2% OINT 15gm or 22gm FOR MRSA NARES EACHNOSTRI SCH (15:07)
[2023-09-13] MEDS: FUROSEMIDE 20 MG/2 ML VIAL IV SCH (18:14)
[2023-09-14] VITALS (19 sets, daily range): BP systolic 115–128; BP diastolic 61–70; PULSE 64–90; RESP 16–22; TEMP 97.4–98.1; O2SAT 94–100
[2023-09-14 15:50] LABS: COVID19 ANTIGEN SOFIA FIA NEGATIVE (NEGATIVE)
[2023-09-14] MEDS: DOXYCYCLINE 100 MG TAB/CAP PO SCH (21:54)
[2023-09-15] VITALS (15 sets, daily range): BP systolic 103–125; BP diastolic 61–71; PULSE 64–85; RESP 14–20; TEMP 97.4–97.9; O2SAT 94–100
[2023-09-15] MEDS: methylPREDNISolone SOD SUCC 40 MG/ML VL IV SCH (10:38)
== END 2023-09-15 19:00 | DRG 133 ==
LOC: ER 14:37 → EDBD 14:37 → TELE 17:32 → TELE-WESTW 09-10 14:24
PROVIDERS: ADMIT Nurse Practitioner Family; ATTEND Family Medicine
DX: J96.01 Acute respiratory failure with hypoxia (principal); N17.0 Acute kidney failure with tubular necrosis; I50.43 Acute on chronic combined systolic (congestive) and diastolic (congestive) heart failure; I21.A1 Myocardial infarction type 2; R64 Cachexia; E43 Unspecified severe protein-calorie malnutrition; I95.9 Hypotension, unspecified; I42.0 Dilated cardiomyopathy; J18.9 Pneumonia, unspecified organism; J44.0 Chronic obstructive pulmonary disease with (acute) lower respiratory infection; I13.0 Hypertensive heart and chronic kidney disease with heart failure and stage 1 through stage 4 chronic kidney disease, or unspecified chronic kidney disease; F17.210 Nicotine dependence, cigarettes, uncomplicated; J44.1 Chronic obstructive pulmonary disease with (acute) exacerbation; Z20.822 Contact with and (suspected) exposure to COVID-19; E78.00 Pure hypercholesterolemia, unspecified; F12.10 Cannabis abuse, uncomplicated; N18.32 Chronic kidney disease, stage 3b; Z95.5 Presence of coronary angioplasty implant and graft; Z91.148 Patient's other noncompliance with medication regimen for other reason; I25.2 Old myocardial infarction; Z71.6 Tobacco abuse counseling; Z68.1 Body mass index [BMI] 19.9 or less, adult; Z79.02 Long term (current) use of antithrombotics/antiplatelets; Z79.82 Long term (current) use of aspirin; Z79.899 Other long term (current) drug therapy; Z71.51 Drug abuse counseling and surveillance of drug abuser; Z83.3 Family history of diabetes mellitus; Z86.79 Personal history of other diseases of the circulatory system
CPT/HCPCS: 36415; 36600; 71045; 80048; 80053; 81001; 82570; 82805; 83735; 83880; 84100; 84132; 84156; 84300; 84439; 84443; 84481; 84484; 84550; 85007; 85025; 85027; 85610; 85730; 87081; 87426; 93005; 93306; 94640; 96365; 96375; 97163; 99291; C9113; G0378; J3490; J7060

== ENCOUNTER 2023-10-19 01:28 | Inpatient (IN) | payer MEDICARE, MEDICAID ==
[~2023-10-19] VITALS: Ht 193 cm; Wt 62.1 kg
[2023-10-19] VITALS (8 sets, daily range): BP systolic 128–155; BP diastolic 64–101; PULSE 70–91; RESP 14–20; TEMP 36.6; O2SAT 97–100
[2023-10-19 02:36] LABS: Basophils # (auto) 0 10 ^3/uL (0-0.2); Basophils % (auto) 0.8 % (0.0-2.0); Eosinophils # (auto) 0 10 ^3/uL (0-0.8); Eosinophils % (auto) 0.8 % (0.0-7.0); Hematocrit 33.9 % (41.0-53.0); Hemoglobin 10.9 g/dL (13.5-17.5); Lymphocytes % (auto) 35.2 % (10.0-50.0); Mean Corpuscular Hemoglobin 28.8 pg (28.0-32.0); Mean Corpuscular Hgb Conc. 32.1 g/dL (32.0-36.0); Mean Corpuscular Volume 89.9 fL (80.0-100.0); Monocytes # (auto) 0.8 10 ^3/uL (0-1.3); Monocytes % (auto) 13.1 % (0.0-12.0); Neutrophils # (auto) 2.9 10 ^3/uL (1.6-8.6); Neutrophils % (auto) 50.1 % (37.0-80.0); Nucleated Red Blood Cells % 0.1 %; Red Blood Cells 3.77 10^6/uL (4.5-5.90); Red Cell Distribution Width 19.4 % (11.8-14.3); White Blood Cell 5.7 10^3/uL (4.4-10.8)
[2023-10-19 02:51] LABS: Albumin 3.5 g/dL (3.2-4.8); Alkaline Phosphatase 89 U/L (46-116); Anion Gap 5 (5-15); Aspartate Aminotransferase 14 U/L (13-40); BUN/Creatinine Ratio 9.2 (10.0-20.0); Blood Urea Nitrogen 14 mg/dL (9-23); Calcium 8.4 mg/dL (8.7-10.4); Carbon Dioxide 25 mmol/L (20-30); Chloride 111 mmol/L (98-107); Glucose 101 mg/dL (74-106); Potassium 3.9 mmol/L (3.5-5.1); Sodium 141 mmol/L (136-145)
[2023-10-19 02:52] LABS: Bilirubin, Total 0.4 mg/dL (0.2-1.0); INR 1.02 (0.9-1.15); Partial Thromboplastin Time 29.6 SEC (24.5-34.5); Prothrombin Time 10.7 sec (9.3-11.8); Total Protein 6.2 g/dL (5.7-8.2)
[2023-10-19 02:58] LABS: Alanine Aminotransferase < 9 U/L (7-40)
[2023-10-19] MEDS ORDERED: NITROGLYCERIN 0.4 MG SL TAB SL PRN (10:00)
[2023-10-19] MEDS ORDERED: HYDROcodone-ACET 5/325MG TAB PO PRN (10:00)
[2023-10-19] MEDS ORDERED: MORPHINE SULFATE INJ 2 MG/ml SYRG IV PRN (10:00)
[2023-10-19] MEDS ORDERED: DOCUSATE SOD 100 MG CAP PO PRN (10:00)
[2023-10-19] MEDS ORDERED: ONDANSETRON HCL 4 MG/2 ML VIAL IV PRN (10:00)
[2023-10-19] MEDS ORDERED: ACETAMINOPHEN 325 MG TAB PO PRN (10:00)
[2023-10-19] MEDS: SODIUM CHLOR 0.9% PF (SALINE LOCK) 10ML VIAL/SYR IV SCH (14:10)
[2023-10-19] MEDS: FUROSEMIDE 20 MG/2 ML VIAL IV SCH (18:17)
[2023-10-19] MEDS: ALBUTEROL SULF 2.5 MG/0.5ML(0.5%) NEB SOLN NEB SCH (18:34)
[2023-10-19] MEDS: IPRATROPIUM BROM 0.5 MG/2.5ML INH SOL NEB SCH (18:34)
[2023-10-19] MEDS: BUDESONIDE IN SCH (22:00)
[2023-10-19] MEDS: FORMOTEROL IN SCH (22:00)
[2023-10-19] MEDS: CARVEDILOL 3.125 MG TAB PO SCH (22:00)
[2023-10-19] MEDS ORDERED: SACUBITRIL-VALSARTAN 24mg/26mg TAB PO SCH (22:00)
[2023-10-19] MEDS: methylPREDNISolone SOD SUCC 40 MG/ML VL IV SCH (22:35)
[2023-10-20] VITALS (17 sets, daily range): BP systolic 82–137; BP diastolic 46–83; PULSE 55–90; RESP 14–18; TEMP 36.8; O2SAT 96–100
[2023-10-20] MEDS: EMPAGLIFLOZIN 10 MG TAB PO SCH (05:13)
[2023-10-20 06:26] LABS: Basophils # (auto) 0 10 ^3/uL (0-0.2); Basophils % (auto) 0.5 % (0.0-2.0); Eosinophils # (auto) 0 10 ^3/uL (0-0.8); Eosinophils % (auto) 0.8 % (0.0-7.0); Hematocrit 30.7 % (41.0-53.0); Hemoglobin 10.2 g/dL (13.5-17.5); Lymphocytes # (auto) 1.3 10 ^3/uL (0.4-5.4); Lymphocytes % (auto) 25.2 % (10.0-50.0); Mean Corpuscular Hemoglobin 29.6 pg (28.0-32.0); Mean Corpuscular Hgb Conc. 33.2 g/dL (32.0-36.0); Mean Corpuscular Volume 89.3 fL (80.0-100.0); Monocytes # (auto) 0.7 10 ^3/uL (0-1.3); Neutrophils # (auto) 3.2 10 ^3/uL (1.6-8.6); Neutrophils % (auto) 60.5 % (37.0-80.0); Red Blood Cells 3.44 10^6/uL (4.5-5.90); Red Cell Distribution Width 18.8 % (11.8-14.3); White Blood Cell 5.3 10^3/uL (4.4-10.8)
[2023-10-20 06:46] LABS: Alkaline Phosphatase 79 U/L (46-116); Anion Gap 6 (5-15); BUN/Creatinine Ratio 15.8 (10.0-20.0); Blood Urea Nitrogen 22 mg/dL (9-23); Calcium 8.5 mg/dL (8.7-10.4); Carbon Dioxide 25 mmol/L (20-30); Chloride 109 mmol/L (98-107); Glucose 111 mg/dL (74-106); Sodium 140 mmol/L (136-145)
[2023-10-20 06:47] LABS: Albumin 3.2 g/dL (3.2-4.8); Aspartate Aminotransferase 13 U/L (13-40); Bilirubin, Total 0.4 mg/dL (0.2-1.0); Total Protein 5.6 g/dL (5.7-8.2)
[2023-10-20 06:53] LABS: Alanine Aminotransferase < 9 U/L (7-40)
[2023-10-20] MEDS: ATORVASTATIN 20 MG TAB PO SCH (09:10)
[2023-10-20] MEDS: CLOPIDOGREL BISULFATE 75 MG TAB PO SCH (09:11)
[2023-10-20] MEDS: ASPirin-EC 81 mg tab PO SCH (09:11)
[2023-10-20] MEDS: NICOTINE 21MG/24 HR TOPICAL PATCH TD SCH (09:19)
[2023-10-20] MEDS ORDERED: FUROSEMIDE 40 MG TAB PO SCH (10:00)
[2023-10-21] VITALS (15 sets, daily range): BP systolic 110–143; BP diastolic 70–85; PULSE 60–88; RESP 16–22; TEMP 97.5–98; O2SAT 92–100
[2023-10-21 07:09] LABS: Anion Gap 8 (5-15); Carbon Dioxide 24 mmol/L (20-30); Chloride 106 mmol/L (98-107); Sodium 138 mmol/L (136-145)
[2023-10-21 07:15] LABS: BUN/Creatinine Ratio 19.6 (10.0-20.0); Blood Urea Nitrogen 27 mg/dL (9-23); Glucose 107 mg/dL (74-106)
[2023-10-21] MEDS ORDERED: SPIR25TA8 PO (13:13)
[2023-10-21] MEDS ORDERED: SACU1TAB PO (13:13)
[2023-10-21] MEDS ORDERED: BUDE1AER4 IN (13:13)
[2023-10-21] MEDS ORDERED: EMPA1TAB PO (13:13)
[2023-10-21] MEDS ORDERED: ALBU0.084 NEB (13:13)
[2023-10-21] MEDS ORDERED: RESPMIS2 XX (13:13)
[2023-10-21] MEDS ORDERED: FURO1TAB31 PO (13:13)
== END 2023-10-21 18:50 | disposition home or self-care (01) | DRG 194 ==
LOC: ER 01:28 → TELE 09:58 → TELE-CENTR 21:20
PROVIDERS: ADMIT Nurse Practitioner Family; ATTEND Nurse Practitioner Acute Care
DX: I13.0 Hypertensive heart and chronic kidney disease with heart failure and stage 1 through stage 4 chronic kidney disease, or unspecified chronic kidney disease (principal); J96.21 Acute and chronic respiratory failure with hypoxia; R64 Cachexia; E44.1 Mild protein-calorie malnutrition; J44.1 Chronic obstructive pulmonary disease with (acute) exacerbation; D63.8 Anemia in other chronic diseases classified elsewhere; I50.23 Acute on chronic systolic (congestive) heart failure; E78.5 Hyperlipidemia, unspecified; N18.9 Chronic kidney disease, unspecified; F17.210 Nicotine dependence, cigarettes, uncomplicated; Z86.79 Personal history of other diseases of the circulatory system; Z91.148 Patient's other noncompliance with medication regimen for other reason; Z98.61 Coronary angioplasty status; Z83.3 Family history of diabetes mellitus; Z68.1 Body mass index [BMI] 19.9 or less, adult
CPT/HCPCS: 36415; 71045; 80048; 80053; 80061; 83036; 83735; 83880; 84443; 84484; 85025; 85610; 85730; 87081; 93005; 94640; 96374; 97162; G0378